=== PATIENT | male | born 1955 | race Caucasian/White ===

== ENCOUNTER 2018-04-22 17:50 | Inpatient (IN) | payer BC, OTHER ==
[2018-04-22 18:23] LABS: #Eosinphils 0.1 thou/uL (0.0-0.7); #Lymphocytes 1.4 thou/uL (1.20-3.40); #Monocytes 0.4 thou/uL (0.11-0.59); #Neutrophils 4.5 thou/uL (1.40-6.50); %Basophils 0.7 % (0.0-1.0); %Eosinophils 2.1 % (0.0-10.0); %Lymphocytes 21.3 % (21.0-51.0); %Monocytes 6.2 % (0.0-10.0); %Neutrophils 69.8 % (42.0-75.0); Hemoglobin 15.9 g/dL (14.0-18.0); Mean Corpuscular HGB CONC 32.9 g/dL (32.0-36.0); Mean Corpuscular Hemoglobin 31.4 pg (27.0-31.0); Mean Corpuscular Volume 95.5 fL (78.0-98.0); Mean Platelet Volume 8.4 fL (7.4-10.4); Platelet Count 165 thou/uL (130-400); RBC Distribution Width 11.4 % (11.5-14.5); Red Blood Cell (RBC) Count 5.08 mill/uL (4.70-6.10); White Blood Cell (WBC) Count 6.5 thou/uL (4.8-10.8)
[2018-04-22] MEDS ORDERED: Morphine 4 MG/ML VIAL ONE (18:30)
[2018-04-22] MEDS ORDERED: Ondansetron PF 4 MG/2 ML Vial ONE (18:30)
[2018-04-22 18:38] LABS: ALT (SGPT) 18 U/L (8-55); AST (SGOT) 27 U/L (5-34); Albumin 4.1 g/dL (3.4-4.8); Alkaline Phosphatase 65 U/L (40-150); Anion Gap 15 mmol/L (10-20); BUN (Urea Nitrogen) 21 mg/dL (8.4-25.7); Bilirubin, Total 0.9 mg/dL (0.2-1.2); Calc. Creatinine Clearance 0 mL/min (70-130); Calcium 9.7 mg/dL (7.8-10.44); Carbon Dioxide 25 mmol/L (23-31); Chloride 102 mmol/L (98-107); Estimated GFR-MDRD 63; Globulin 2.9 g/dL (2.4-3.5); Glucose 102 mg/dL (80-115); Potassium 3.9 mmol/L (3.5-5.1); Sodium 138 mmol/L (136-145)
--- NOTE | 2018-04-22 19:17 | RAD ---
TWO VIEWS HIP: Indication: History of fall with right hip pain. Comparison: None. FINDINGS: There is a mid-cervical right femoral neck fracture. The distal fracture fragment (femoral shaft comp onent) is externally rotated and displaced anteriorly 1.3 cm. There is moderate degenerative arthrosi s involving the right hip. No additional fractures identified. IMPRESSION: 1. Mid-cervical right femoral neck fracture with mild angulation and displacement. 2. Moderate right hip osteoarthrosis. POS: [facility]
--- NOTE | 2018-04-22 19:21 | RAD ---
CHEST ONE VIEW: Indication: Pre-op. Comparison: None. FINDINGS: The lungs are clear. There is mild hyperinflation that accentuates the size of the heart and pulmonar y vasculature. These are felt to be within normal limits. No pleural effusion or pneumothorax is evid ent. No definite acute osseous abnormality is noted. IMPRESSION: No acute cardiopulmonary abnormality is demonstrated. POS: [facility]
[2018-04-22 19:37] LABS: Bilirubin Negative (Negative); Blood, Urine Negative (Negative); Clarity CLEAR (Clear); Glucose, Urine (Dipstick) Negative (Negative); Leukocyte Negative (Negative); Nitrite Negative (Negative); Protein, Urine (Dipstick) Negative (Neg-Trace); Specific Gravity, Urine 1.012 (1.002-1.036); Urobilinogen 0.2 mg/dL (0.2-1.0)
[2018-04-22] MEDS ORDERED: Ondansetron PF 4 MG/2 ML Vial IVP PRN (19:38)
[2018-04-22] MEDS ORDERED: Ondansetron ODT 4 MG TAB PO PRN (19:38)
[2018-04-22] MEDS ORDERED: Morphine 4 MG/ML VIAL SLOW IVP PRN ×2 (19:38)
[2018-04-22] MEDS ORDERED: Dextrose 50% Abboject 50 ML SYRINGE SLOW IVP PRN (19:38)
[2018-04-22] MEDS ORDERED: Dextrose 5% in Water 1,000 ML IV PRN (19:38)
[2018-04-22] MEDS ORDERED: traMADol HCl 50 MG TAB PO PRN (19:43)
--- NOTE | 2018-04-22 20:04 | RAD ---
RIGHT WRIST THREE VIEWS: Indication: Fall with right wrist pain. Comparison: None. FINDINGS: There is a comminuted, dorsally impacted intraarticular distal radius fracture. The distal fracture f ragment is displaced dorsally 5 mm. There is intraarticular comminution that extends into the lunate fossa and DRUJ. Additionally there is a ulnar styloid base fracture that is mildly displaced. There i s a subchondral cyst like abnormality within the lunate. The wrist carpus appears within normal limit s otherwise. IMPRESSION: 1. Comminuted dorsally angulated, dorsally impacted intraarticular distal radius fracture of the righ t wrist. 2. Mildly displaced comminuted right ulnar styloid based fracture. POS: [facility]
--- NOTE | 2018-04-22 21:08 | HP ---
ATTENDING TRAUMA SURGEON: Dr. Morales. HISTORY OF PRESENT ILLNESS: This is a 62-year-old gentleman, who was cleaning his gutters up on a ladder, when the ladder tilted away from him casing him to fall to a hard surface from approximately 10 to 15 feet. The patient reports landing on his right side injuring his right wrist and right hip. The patient denies any loss of consciousness. Denies any nausea, vomiting, or dizziness. The patient denies any other pain. Denies any neck pain or head pain. No other obvious injuries. The patient was evaluated in the emergency room and was found to have a right wrist fracture and a right mid cervical femoral neck fracture with mild angulation and displacement. The patient does report history of neuropathy to both feet, unknown calls for the last 8 years. The patient does see a neurologist for this condition, states that he has very minimal sensation to his feet and lower extremities. The patient also reports a right foot drag whenever he walks, which has been happening over the last year. Only other history is the patient had gastric bypass in May 2017 with no difficulties. The patient had a 130 pounds weight loss. The patient reports that he was on medications for hypertension and diabetes at that time, but now is no longer needing medication. 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 The patient had 2 rounds of chemo 2 years ago for a blood cancer. PAST SURGICAL HISTORY: Bariatric surgery in 2018 and back surgery. SOCIAL HISTORY: The patient lives at home with his . The patient drinks socially approximately 3 drinks a week. The patient denies any drug use. The patient reports smokes a cigar approximately once a week. ALLERGIES: NO KNOWN DRUG ALLERGIES. MEDICATIONS: 1. Aspirin 81 mg daily. 2. Bariatric vitamin daily. 3. Citalopram 20 mg daily. REVIEW OF SYSTEMS: A 10-point review of systems is negative unless otherwise indicated in the above HPI. PHYSICAL EXAMINATION: VITAL SIGNS: Blood pressure 148/92, pulse 72, respirations 16, temperature 97.7 , and 98% on room air. GENERAL: The patient is awake, alert, in no distress. The patient is alert and oriented to place, time, and event. HEENT: Head is atraumatic and normocephalic. Pupils are equal, round, and reactive at 4 mm bilateral. NECK: With normal findings. Normal range of motion. Trachea is midline. There is no cervical tenderness. RESPIRATORY: Bilateral breath sounds clear, chest movement is symmetrical, small abrasion to the left anterior chest wall. No chest tenderness. No deformity. CARDIOVASCULAR: Regular rate and rhythm. Heart sounds are normal. No murmur noted. ABDOMEN: Soft, nontender, and nondistended. Active bowel sounds. BACK: Normal inspection. No pain. EXTREMITIES: Right wrist with obvious deformity. Positive distal pulse and sensation intact. Right lower extremity externally rotated. 2+ pedal pulse and 2+ dorsalis pedal pulses. The patient with minimal sensation due to neuropathy. The patient with good movement of all extremities distally. Right wrist in a sugar- tong splint placed by ER physician. NEUROLOGIC: The patient is awake, alert, and oriented x4. GCS 15. Moves all extremities. The patient does have decreased sensation to lower extremities, especially bilateral feet. Again, this is normal for the patient. LABORATORY DATA: WBC 6.5, RBC 5.08, hemoglobin 15.9, hematocrit 48.5, platelets 165. APTT 27.2. Sodium 138, potassium 3.9, chloride 102, carbon dioxide 25, anion gap 15, BUN 21, creatinine 1.18, estimated GFR 63, glucose 102, calcium 9.7. AST 27, ALT 18, alkaline phos 65, serum total protein 7.0, albumin 4.1, and globulin 2.9. Urinalysis clear yellow urine, negative protein, negative glucose, trace of ketones, negative for blood, negative for nitrites, negative for leukocyte esterase. DIAGNOSTICS: 1. Right hip x-ray; impression, mid cervical right femoral neck fracture with mild angulation and displacement. Moderate right hip osteoarthritis. 2. Chest x-ray, no acute cardiopulmonary abnormality as demonstrated. 3. Right wrist x-ray, comminuted dorsally angulated, dorsally impacted intra-articular distal radius fracture. Mildly displaced comminuted ulnar styloid base fracture. IMPRESSION: 1. Fall from 10 to 15 feet off a ladder. 2. Right mid cervical femoral neck fracture with mild angulation and displacement. 3. Right comminuted, angulated, impacted distal radial ulnar fracture. 4. History of neuropathy. 5. Acute traumatic pain. PLAN: We will admit the patient to the surgical ortho floor. Dr. Álvarez plans to take the patient to the OR tomorrow. We will place the patient n.p.o. after midnight for OR. We will start the patient on IV maintenance fluids. We will place the patient on a pain regimen. Physical therapy and occupational therapy will be ordered and to treat and evaluate after OR tomorrow. We will also place a rehab screen for the patient. The plan will be discussed with Dr. Morales after this dictation. Job ID: [id number] MTDD
[2018-04-22 21:13] LABS: Magnesium 2.4 mg/dL (1.6-2.6); Phosphorus 2.6 mg/dL (2.3-4.7)
[2018-04-22] MEDS ORDERED: diphenhydrAMINE 50 MG/ML VIAL IVP PRN (21:40)
[2018-04-22] MEDS ORDERED: diphenhydrAMINE 50 MG/ML VIAL IM PRN (21:40)
[2018-04-22] MEDS ORDERED: Naloxone HCl 0.4 mg/ml Vial IV PRN (21:40)
[2018-04-22] MEDS ORDERED: Zolpidem Tartrate 5 MG TAB PO PRN (21:40)
[2018-04-22] MEDS ORDERED: Promethazine HCl 25 MG/ML VIAL IM PRN (21:40)
[2018-04-22] MEDS ORDERED: diphenhydrAMINE 25 MG CAP PO PRN (21:40)
[2018-04-22] MEDS ORDERED: Communication Order-Pharmacy FS SCH (21:45)
[2018-04-22] MEDS ORDERED: Ibuprofen 800 MG TAB PO SCH (22:00)
[2018-04-22] MEDS: Famotidine 20 MG TAB PO SCH (22:29)
[2018-04-22] MEDS: Sodium Chloride 0.9% 1,000 ML IV SCH (22:30)
[2018-04-22] MEDS: HYDROmorphone 10 mg/100 ml CADD IVPB PRN (22:36)
--- NOTE | 2018-04-22 23:01 | PRG ---
DATE OF SERVICE: 04/22/2018 Mr. Goodson is a 62-year-old man, who fell off a ladder sustaining multiple traumatic injuries of the upper and lower extremities. He is awake and alert with a [place] Coma Scale of 15. He is complaining of severe right hip pain which he rates now at 9/10. He has recently been given intravenous morphine with minimum relief. He has remained hemodynamically stable otherwise since his admission. I reviewed the history and physical as documented by Marah Buchanan, trauma nurse practitioner and I agree with her impressions and plan. Mr. Goodson will be evaluated by Dr. Guido Álvarez from operative surgical standpoint and hopefully undergo surgical repair tomorrow. Meanwhile, we will change his pain management to PRACTICE COORDINATOR Dilaudid. Citalopram at 20 mg p.o. daily and I will resume that. The above findings and plan discussed with the patient and his at bedside. They both agreed with the plan. Job ID: [id number]
[2018-04-22 23:24] VITALS: BMI 26.9
[2018-04-22] MEDS: Ketorolac Tromethamine 30 MG/ML VIAL IVP SCH (23:44)
[2018-04-22] MEDS: Acetaminophen 500 MG TAB PO SCH (23:44)
[2018-04-22] MEDS ORDERED: traMADol HCl 50 MG TAB PO SCH (23:59)
[2018-04-23] MEDS: Sodium Chloride 0.9% 1,000 ML IV SCH ×3 (05:09→21:34)
[2018-04-23 05:34] LABS: #Basophils 0.1 thou/uL (0.0-0.2); #Eosinphils 0.1 thou/uL (0.0-0.7); #Lymphocytes 1.1 thou/uL (1.20-3.40); #Monocytes 0.5 thou/uL (0.11-0.59); #Neutrophils 4.4 thou/uL (1.40-6.50); %Basophils 0.9 % (0.0-1.0); %Lymphocytes 18.4 % (21.0-51.0); %Monocytes 7.9 % (0.0-10.0); %Neutrophils 71.8 % (42.0-75.0); Hemoglobin 14.1 g/dL (14.0-18.0); Mean Corpuscular HGB CONC 32.1 g/dL (32.0-36.0); Mean Corpuscular Hemoglobin 30.9 pg (27.0-31.0); Mean Platelet Volume 8.4 fL (7.4-10.4); Platelet Count 121 thou/uL (130-400); RBC Distribution Width 11.3 % (11.5-14.5); Red Blood Cell (RBC) Count 4.57 mill/uL (4.70-6.10); White Blood Cell (WBC) Count 6.1 thou/uL (4.8-10.8)
[2018-04-23 05:57] LABS: Phosphorus 4.8 mg/dL (2.3-4.7)
[2018-04-23 06:01] LABS: ALT (SGPT) 15 U/L (8-55); AST (SGOT) 20 U/L (5-34); Albumin 3.5 g/dL (3.4-4.8); Alkaline Phosphatase 51 U/L (40-150); Anion Gap 10 mmol/L (10-20); BUN (Urea Nitrogen) 22 mg/dL (8.4-25.7); Calc. Creatinine Clearance 108 mL/min (70-130); Calcium 8.9 mg/dL (7.8-10.44); Carbon Dioxide 28 mmol/L (23-31); Chloride 104 mmol/L (98-107); Estimated GFR-MDRD 72; Globulin 2.3 g/dL (2.4-3.5); Glucose 103 mg/dL (80-115); Magnesium 2.1 mg/dL (1.6-2.6); Potassium 4.4 mmol/L (3.5-5.1); Protein, Total 5.8 g/dL (5.8-8.1); Sodium 138 mmol/L (136-145)
[2018-04-23] MEDS: Acetaminophen 500 MG TAB PO SCH ×4 (06:06→23:23)
[2018-04-23] MEDS: Ketorolac Tromethamine 30 MG/ML VIAL IVP SCH (06:06)
[2018-04-23] MEDS ORDERED: CEFAZOLIN 2 GM in Premix Bag 1 BAG IVPB SCH (07:45)
--- NOTE | 2018-04-23 07:51 | CON ---
DATE OF CONSULTATION: 04/23/2018 REASON FOR CONSULTATION: 1. Right hip mid cervical femoral neck fracture. 2. Right distal radius metaphyseal fracture. BRIEF CLINICAL HISTORY: Keven is a 62-year-old white male, who was working on a ladder yesterday evening, when apparently tilted away from his house, falling approximately 10 to 15 feet, landing on his right side. He had immediate onset of pain in his right hip and forearm and EMS was summoned. The patient was taken to [facility], where plain radiographs demonstrated a right distal radius metaphyseal fracture, displaced, shortened with an accompanying right hip mid cervical femoral neck fracture. He had been admitted by the Trauma Team and our service was consulted for definitive management of these problems. 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 The patient received chemotherapy. He also developed resultant neuropathy in both lower extremity secondary to this. PAST SURGICAL HISTORY: Bariatric gastric bypass, I believe versus band. SOCIAL HISTORY: He lives here in [place]. He and his live together. He is . He smokes a cigar once a week and drinks socially. MEDICATIONS: 1. Aspirin. 2. Citalopram. REVIEW OF SYSTEMS: He denies any fever, chills, nausea, vomiting, chest pain, dyspnea on exertion, or swelling of extremities prior to his fall. No history of heart problems. PHYSICAL EXAMINATION: GENERAL: This is a well-nourished, well-developed white male, appearing stated age, in no apparent distress, discomfort. He is alert and oriented to person, place, time, and situation. EXTREMITIES: Visual inspection of the right wrist demonstrates to be in a volar splint. He has good digital excursion and good sensation in all digits. Right lower extremity is not examined, but it is shortened and externally rotated relative to the left. He has good distal pulses at the dorsalis pedis, posterior tibialis. Good and warm toes. Range of motion, not assessed due to an underlying fracture. IMAGING STUDIES: Plain radiographs of the right hip demonstrates a mid cervical shortened right femoral neck fracture and plain radiographs of the right forearm demonstrate a right distal radius metaphyseal fracture with question of intra-articular placement, but on the lateral view, it appears to be just a Colles fracture. IMPRESSION: 1. Right hip mid cervical femoral neck fracture secondary to fall. 2. Right distal radius metaphyseal displaced fracture secondary to fall. PLAN: 1. The risks, benefits, options, alternatives, and rationale for proceeding with total hip arthroplasty has been explained in great detail with the patient. He is ready to proceed. All questions were answered. No guarantee of outcome stated or implied. 2. The risks, benefits, options, alternatives, and rationale for proceeding with right distal radius open reduction and internal fixation has been explained in great detail with the patient. He is ready to proceed. All questions were answered. No guarantee of outcome stated or implied. 3. Please see orders. Job ID: [id number]
[2018-04-23] MEDS ORDERED: Vancomycin HCl 1.5 GM in Sodium Chloride 0.9% 250 ML 300 ML IVPB SCH (08:30)
[2018-04-23] MEDS: Polyethylene Glycol 3350 17 GM Packet PO SCH (08:37)
[2018-04-23] MEDS: Citalopram 20 MG TAB PO SCH (08:38)
[2018-04-23] MEDS: Famotidine 20 MG TAB PO SCH ×2 (08:38→21:30)
[2018-04-23] MEDS ORDERED: Tranexamic Acid 1,000 MG/10 ML VIAL ONE ×2 (10:35→12:27)
[2018-04-23] MEDS ORDERED: Sodium Chloride 0.9% 100 ML ONE (10:35)
[2018-04-23] MEDS ORDERED: Fentanyl 100 MCG/2 ML VIAL ONE ×2 (10:40→11:42)
[2018-04-23] MEDS ORDERED: Midazolam HCl 2 mg/2 ml Vial ONE (10:40)
[2018-04-23] MEDS ORDERED: Ketorolac Tromethamine 30 MG/ML VIAL IVP PRN (11:15)
[2018-04-23] MEDS ORDERED: HYDROcodone/Acetaminophen 5/325 mg Tablet PO PRN ×2 (11:15)
[2018-04-23] MEDS ORDERED: Naloxone HCl 0.4 mg/ml Vial IV PRN (11:15)
[2018-04-23] MEDS ORDERED: diphenhydrAMINE 50 MG/ML VIAL IM PRN (11:15)
[2018-04-23] MEDS ORDERED: Zolpidem Tartrate 5 MG TAB PO PRN ×2 (11:15→11:48)
[2018-04-23] MEDS ORDERED: Naloxone HCl 0.4 mg/ml Vial IVP PRN (11:15)
[2018-04-23] MEDS ORDERED: diphenhydrAMINE 25 MG CAP PO PRN ×2 (11:15→11:48)
[2018-04-23] MEDS ORDERED: Ondansetron PF 4 MG/2 ML Vial IVP PRN ×2 (11:15→11:48)
[2018-04-23] MEDS ORDERED: Promethazine HCl 25 MG SUPP PR PRN (11:15)
[2018-04-23] MEDS ORDERED: Promethazine HCl 25 MG/ML VIAL IM PRN ×3 (11:15→13:51)
[2018-04-23] MEDS ORDERED: traMADol HCl 50 MG TAB PO PRN ×2 (11:15)
[2018-04-23] MEDS ORDERED: Bupivacaine 0.25% 10 ML VIAL EPIDURAL PRN (11:15)
[2018-04-23] MEDS ORDERED: Hydrocerin (Eucerin) Cream 120 gm Jar TOP PRN (11:15)
[2018-04-23] MEDS ORDERED: diphenhydrAMINE 50 MG/ML VIAL IVP PRN (11:15)
[2018-04-23] MEDS ORDERED: Bupivacaine 10 ML in Sodium Chloride 0.9% 90 ML EPIDURAL SCH (11:30)
[2018-04-23] MEDS ORDERED: Ropivacaine 0.2% HCl/PF 20 ML ONE (11:42)
[2018-04-23] MEDS ORDERED: Acetaminophen 325 MG TAB PO PRN (11:48)
[2018-04-23] MEDS ORDERED: HYDROcodone/Acetaminophen 10/325 mg Tablet PO PRN ×2 (11:48)
[2018-04-23] MEDS ORDERED: Fentanyl 100 MCG/2 ML VIAL SLOW IVP PRN ×2 (11:48)
[2018-04-23] MEDS ORDERED: Bupivacaine HCl 0.5%/Epinephrine 1:200,000/PF 30 ml Vial ONE (13:37)
[2018-04-23] MEDS ORDERED: Ondansetron HCl/PF 4 MG/2 ML Vial IVP PRN (13:51)
[2018-04-23] MEDS ORDERED: Promethazine HCl 25 MG/ML VIAL SLOW IVP PRN (13:51)
--- NOTE | 2018-04-23 15:27 | RAD ---
RIGHT WRIST 3 VIEWS: Date: 04/23/18 HISTORY: Intraoperative films. FINDINGS: These films show open reduction and internal fixation of the distal radial fracture with plate and sc rews. Bony alignment appears satisfactory. IMPRESSION: 1. Open reduction and internal fixation of the distal radial fracture. Incidental note is made of an ulnar styloid fracture. 2. Also incidentally noted is possible slight widening of the distance between the scaphoid and nabil te, difficulty to assess on this C-arm film, but raising the possibility of a scapholunate ligament i njury. POS: [facility]
--- NOTE | 2018-04-23 15:29 | PRG ---
DATE OF SERVICE: 04/23/2018 SUBJECTIVE: This is a 62-year-old gentleman, who fell approximately 10 to 15 feet off a ladder as he was cleaning out his gutters. The patient is awake and alert, and has been n.p.o. since midnight pending surgery on his right wrist and right hip. The patient had no overnight events. The patient reports his pain was well controlled with CAPACITY MANAGEMENT SPECIALIST pump. The patient has no complaints at this time. OBJECTIVE: VITAL SIGNS: Temperature 98.5, pulse 58, respirations 14, SpO2 of 95% on room air, blood pressure 117/77. HEENT: Normocephalic, atraumatic. RESPIRATORY: No distress. Breathing is normal and unlabored. Bilateral equal breath sounds. CARDIAC: Regular rate and rhythm. No murmur. ABDOMEN: Soft, nontender, nondistended. EXTREMITIES: The patient with splint to right wrist. Positive distal pulses to all extremities. No focal deficits. NEUROLOGIC: The patient with GCS 15. No focal deficits. LABORATORY DATA: WBC 6.1, RBC 4.57, hemoglobin 14.1, hematocrit 43.9, platelets 121. Sodium 138, potassium 4.4, chloride 104, anion gap 10, BUN 22, creatinine 1.05, estimated GFR 72, glucose 103, calcium 8.9, phosphorus 4.8, magnesium 2.1, AST 20, and ALT 15. DIAGNOSTICS: There are no diagnostics to review today. IMPRESSION: 1. Status post fall 10 to 15 feet off a ladder. 2. Right midcervical femoral neck fracture with mild angulation and displacement. 3. Right comminuted, angulated, distal radial ulnar fracture. 4. History of neuropathy. 5. Acute traumatic pain. PLAN: The patient remains n.p.o. for orthopedic surgery today by Dr. Álvarez. I will continue the patient's pain regimen and CAPACITY MANAGEMENT SPECIALIST. We will place the patient on an advance diet as tolerated after surgery. The patient most likely will be discharged home and will not need rehab. We will have Physical therapy and Occupational therapy for the patient after his surgery today. The patient was examined with Dr. Garcia today during morning rounds. Job ID: [id number]
--- NOTE | 2018-04-23 15:46 | RAD ---
RIGHT HIP 2 VIEWS: HISTORY: Postop hip replacement followup. FINDINGS: Hip prosthesis has been placed. Components appear in adequate position and alignment. POS: [facility]
[2018-04-23] MEDS ORDERED: Lidocaine 1% PF 5 ML VIAL ONE (17:01)
[2018-04-23] MEDS ORDERED: Ondansetron PF 4 MG/2 ML Vial ONE (17:01)
[2018-04-23] MEDS ORDERED: ePHEDrine 50 MG/ML VIAL ONE (17:01)
[2018-04-23] MEDS ORDERED: Glycopyrrolate 0.2 MG/ML 5 ML SYRINGE ONE (17:01)
[2018-04-23] MEDS ORDERED: Ketorolac Tromethamine 30 MG/ML VIAL ONE (17:01)
[2018-04-23] MEDS ORDERED: Rocuronium Bromide 10 MG/ML (10ML VIAL) ONE (17:01)
[2018-04-23] MEDS ORDERED: PROPOFOL 200 MG/20 ML VIAL ONE (17:01)
--- NOTE | 2018-04-23 17:46 | RAD ---
RIGHT HIP TWO VIEWS: History: Post op evaluation FINDINGS/IMPRESSION: Hip prosthesis in place. Component appear in adequate position and alignment. Post op changes are not ed. POS: [facility]
[2018-04-23] MEDS: CEFAZOLIN 2 GM in Sodium Chloride 0.9% 100 ML IVPB SCH (19:22)
[2018-04-23] MEDS: Aspirin 81 mg Enteric Coated Tablet PO SCH (21:30)
[2018-04-23] MEDS: Senokot S 8.6-50 MG TAB PO SCH (21:30)
[2018-04-23] MEDS: Ferrous Gluconate 324 MG TAB PO SCH (21:30)
[2018-04-24] MEDS: CEFAZOLIN 2 GM in Sodium Chloride 0.9% 100 ML IVPB SCH (03:06)
[2018-04-24] MEDS: Sodium Chloride 0.9% 1,000 ML IV SCH (03:07)
[2018-04-24 05:29] LABS: Hemoglobin 11.7 g/dL (14.0-18.0); Mean Corpuscular HGB CONC 33.4 g/dL (32.0-36.0); Mean Corpuscular Hemoglobin 31.7 pg (27.0-31.0); Mean Corpuscular Volume 94.8 fL (78.0-98.0); Mean Platelet Volume 8.4 fL (7.4-10.4); Platelet Count 102 thou/uL (130-400); RBC Distribution Width 11.3 % (11.5-14.5); Red Blood Cell (RBC) Count 3.69 mill/uL (4.70-6.10); White Blood Cell (WBC) Count 4.3 thou/uL (4.8-10.8)
[2018-04-24] MEDS: Acetaminophen 500 MG TAB PO SCH ×4 (05:41→23:37)
[2018-04-24 05:44] LABS: Anion Gap 7 mmol/L (10-20); BUN (Urea Nitrogen) 16 mg/dL (8.4-25.7); Calc. Creatinine Clearance 110 mL/min (70-130); Calcium 7.8 mg/dL (7.8-10.44); Carbon Dioxide 29 mmol/L (23-31); Chloride 103 mmol/L (98-107); Estimated GFR-MDRD 73; Glucose 110 mg/dL (80-115); Sodium 135 mmol/L (136-145)
[2018-04-24 08:22] LABS: Magnesium 1.6 mg/dL (1.6-2.6); Phosphorus 2.9 mg/dL (2.3-4.7)
[2018-04-24] MEDS ORDERED: Potassium Phosphate 15 MMOL, Magnesium Sulfate 2 GM in Sodium Chloride 0.9% 250 ML 250 ML IVPB SCH (08:30)
[2018-04-24] MEDS ORDERED: Magnesium 2 GM/50 ML 2 GM in Premix Bag 1 BAG IVPB SCH (08:30)
[2018-04-24] MEDS: Polyethylene Glycol 3350 17 GM Packet PO SCH (08:35)
[2018-04-24] MEDS: Senokot S 8.6-50 MG TAB PO SCH ×2 (08:35→20:50)
[2018-04-24] MEDS: Ferrous Gluconate 324 MG TAB PO SCH ×2 (08:36→20:50)
[2018-04-24] MEDS: Citalopram 20 MG TAB PO SCH (08:36)
[2018-04-24] MEDS: Famotidine 20 MG TAB PO SCH ×2 (08:37→20:51)
[2018-04-24] MEDS: Aspirin 81 mg Enteric Coated Tablet PO SCH ×2 (08:37→20:50)
[2018-04-24] MEDS: Multivitamin W/ Minerals 1 TAB PO SCH (08:37)
--- NOTE | 2018-04-24 09:14 | OP ---
DATE OF PROCEDURE: 04/23/2018 PREOPERATIVE DIAGNOSES: 1. Displaced femoral neck fracture, right. 2. Displaced intra-articular distal radius fracture, right. INSPECTOR RECEIVING: Rodriguez. BLOOD LOSS: 300 for the hip and less than 50 for the wrist. IMPLANTS: Implants used for the hip was [place] Accolate #5 stem, 36 mm head ceramic standard, a 56 mm cup with a 36 mm liner. PROCEDURE IN DETAIL: After informed consent was obtained in the preoperative holding area, the patient was taken to the operative suite where general anesthesia was induced. The patient was then positioned in the lateral decubitus position. The hip was then prepped and draped in usual sterile fashion. The patient received preoperative antibiotics. Prior to incision, time-out was called and all members of the surgical team agreed upon site, surgeon, and patient. After this, a longitudinal incision was made directly over the trochanter, noted by palpation extending 2 fingerbreadths above and below the trochanter. The deeper subcutaneous layer was undermined with Bovie electrocautery. The iliotibial band was encountered and incised sharply and the plane below this was developed bluntly. A Charnley retractor was placed to hold this opened. The lateral aspect of the trochanter and the abductor muscles were encountered and then reflected anteriorly off the trochanter using Bovie electrocautery. Once this was completed, the anterior capsule was then encountered and identified and copious capsulotomy was carried out, exposing the femoral neck and head. Dislocation maneuver was then performed and an in situ provisional neck cut was then made using the oscillating saw. Attention was then turned to acetabular preparation and sequential reaming was carried out up to the appropriate diameter. A trial was then malleted into place with good firm resistance and no pullout. The permanent acetabular shell was then malleted squarely into place, as was the appropriate liner. Once completed, the wound was copiously irrigated and attention was then turned to femoral preparation. Flexion and external rotation were performed of the exposed thigh and femoral elevators were then placed at the proximal aspect of the wound. Canal finder was used to establish the length of the canal and sequential reaming was carried out, followed by broaching. Once the appropriate stability was established with the trial broaches with flexion, extension and rotational stability, we did trial with neutral and 2 mm offset incremental necks. Once the appropriate size was decided upon, with good stability noted with flexion, extension, internal and external rotation and shuck being negative, we removed the femoral trial broach and malletted into place the permanent prosthesis with good firm fit, which was also stable to rotation. Again, the hip felt very stable to flexion, extension, internal and external rotation. Leg lengths appeared near anatomic clinically and we were quite happy with prosthesis placement. Copious irrigation was then carried out through the entirety of the wound. Primary closure of the abductors was accomplished with interrupted #2 Vicryl [id number] stitches and the IT band was then closed with interrupted #2 Vicryl, oversewn with a #2 running barbed Quill stitch. Subcutaneous fascia was closed with running barbed Quill stitch and a subcuticular Monocryl barbed Quill stitch was used for skin closure and augmented with skin cement. A sterile dressing was applied. The procedure was terminated without any complication. All counts were correct. The patient was awakened in the operative suite and taken to the recovery room in stable condition. After the hip replacement, the patient was placed in supine position with arm on armboard. The right arm was prepped and draped in usual sterile fashion. After exsanguination, tourniquet was inflated to 250 mmHg. Made a standard FCR approach. Dissection was carried down to the fracture. The fracture was exposed, irrigated, reduced anatomically and 4-hole Synthes distal radius variable angle plate was applied. Screws were inserted in usual technique with excellent rigid fixation. X-rays obtained, which showed appropriate screw placement and excellent reduction of fracture. Tourniquet was released. Irrigation was performed. Hemostasis obtained. Subcu tissue was closed 2-0 Vicryl. The skin was closed with rivera. Sterile dressing was applied. The patient was placed in a splint. No complications. Job ID: [id number]
--- NOTE | 2018-04-24 10:21 | HP ---
CHIEF COMPLAINT: Fall from ladder. CONSULTING PHYSICIAN: Guido Álvarez MD HISTORY OF PRESENT ILLNESS: This patient is a 62-year-old male, who had a fall from a ladder onto a flat surface causing fracture of his right hip and right wrist. The patient was initially admitted by the Trauma team. Orthopedics was consulted and the patient had surgery yesterday. He is postop day 1, doing well today. Reports he is not having significant pain in his wrist, but he is having some pain in his right hip. Reports overall, he is feeling quite well. He is eating. Bowels are working and generally without complaints other than some pain. REVIEW OF SYSTEMS: All systems reviewed and all pertinent positives and negatives noted in history of present illness. PAST MEDICAL HISTORY: Notable for morbid obesity and peripheral neuropathy. PAST SURGICAL HISTORY: L4-L5 surgery in the mid 1980s and bariatric surgery last year. FAMILY HISTORY: Father of lung cancer. His mother is 88 and prediabetic, but otherwise healthy. SOCIAL HISTORY: The patient is . He smokes 1 cigar every 1 to 2 weeks. He has an occasional scotch. He is full code and his would be his surrogate decision maker. ALLERGIES: NONE. HOME MEDICATIONS: Aspirin 81 mg daily, which he has no specific reason to take other than it was the recommendation from his primary care provider over 15 years ago. He takes; 1. Two bariatric vitamins. 2. Chewable calcium. 3. Citalopram. PHYSICAL EXAMINATION: VITAL SIGNS: Temperature is 99.1, pulse 82, respirations 16, O2 saturation 95% on room air, and BP is 100/62. GENERAL APPEARANCE: Age-appropriate male. He is fully awake and alert, very pleasant and cooperative. HEENT: PERRL. No OP lesions. NECK: Supple and symmetric. No lymphadenopathy, JVD, or bruits. HEART: Regular rate and rhythm without murmurs, gallops, or rubs. LUNGS: Clear to auscultation bilaterally with good chest wall expansion and air exchange. ABDOMEN: Soft, nontender, and nondistended. Positive bowel sounds. No masses. No organomegaly. EXTREMITIES: No cyanosis, clubbing, or edema. Right wrist has appropriate postoperative dressing as does the right hip. He has no peripheral edema. Good peripheral pulses. LABORATORY DATA: White count 4.3, hemoglobin 11.7, and platelets 102. Sodium 135, potassium 4.0, chloride 103, CO2 is 29, anion gap is 7, BUN 16, creatinine is 1.03, glucose 110, and magnesium 1.6. IMPRESSION AND PLAN: 1. Postop repair of right wrist and right hip fracture. The patient has also a King catheter and has not been up and moving. He is on a TRAINING AND DEVELOPMENT COORDINATOR pump. We will defer management to the Orthopedic and Trauma teams. 2. History of bariatric surgery. The patient is going to have his bring his bariatric vitamins today, so we can try to assess those better and get him back on his usual regimen. 3. History of depression. The patient is quite stable on citalopram. He is back on his usual dose. No change indicated there. 4. Pancytopenia, likely secondary to the fall with trauma and some bleeding. No intervention indicated as of yet. Continue to monitor. Job ID: [id number]
--- NOTE | 2018-04-24 13:37 | PRG ---
DATE OF SERVICE: 04/24/2018 SUBJECTIVE: The patient was seen this morning, sitting up in bed and well-appearing. No signs of acute distress. He was having breakfast. Reported pain was better controlled after it was described to him the appropriate use of the EXTRACT PULLER. He states now that he is able to rest and work with Physical therapy, but previously he was not pushing the button often enough. He does have a King in place and has not had a bowel movement yet. He is pending rehab screen and PT and OT at this time. He is only postop day 1 at this time. He is tolerating his regular diet. He is on IV fluids. He denies nausea, vomiting, or diarrhea. OBJECTIVE: VITAL SIGNS: Temperature 99.3, pulse 76, respirations 16, oxygen saturation 98% on room air, and blood pressure 97/56. GENERAL: Well-appearing middle-aged male, sitting up in bed with no signs of acute distress. Eating breakfast. PULMONARY: Equal chest rise and fall. Clear breath sounds bilaterally. No signs of significant pulmonary distress. CARDIAC: Regular rate and rhythm. No murmurs, gallops, or rubs. GASTROINTESTINAL: Abdomen is soft, nontender, and nondistended. EXTREMITIES: Right lower extremity footdrop, not new and stable. Numbness and tingling in bilateral lower extremities, which is stable. Does report right-sided tingling, which is new after his injury. Gross motor and sensation intact in all 4 extremities. 2+ pulses in all extremities. No significant swelling noted. LABORATORY FINDINGS: White count 4.3, hemoglobin 11.7, hematocrit 35.0, and platelets 102. Sodium 135, potassium 4.0, chloride 103, carbon dioxide 29, BUN 16, creatinine 1.03, phosphorus 2.9, and magnesium 1.6. DIAGNOSTIC FINDINGS: There are no diagnostic findings to report. ASSESSMENT: 1. Status post mechanical fall from ladder, 10 to 15 feet. 2. Right femoral fracture. 3. Right radius fracture. 4. Acute traumatic pain. 5. 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 6. Acute on chronic renal insufficiency. 7. Stable acute blood loss anemia. PLAN: We will discontinue the normal saline and King today. We will replace phosphorus and magnesium at this time. The patient to work with Physical Therapy as well as have a rehab screen. This is likely he will go to rehab. Continue regular diet and pain regimen with EXTRACT PULLER, Tylenol and Toradol. It appears that this morning we have been able to achieve pain control. We will deescalate pain management tomorrow and transition to p.o.'s at that time. The patient is only taking aspirin at home. We will continue to hold that as he is on aspirin 81 mg b.i.d. here. The patient will likely soon be ready for discharge. Pending adequate p.o. pain regimen. The patient was discussed with Dr. Morales. Job ID: [id number]
[2018-04-24] MEDS: Gabapentin 300 MG CAP PO SCH ×2 (14:19→20:51)
[2018-04-24] MEDS: HYDROmorphone 10 mg/100 ml CADD IVPB PRN (14:24)
[2018-04-24] MEDS ORDERED: traMADol HCl 50 MG TAB PO PRN ×2 (14:42)
[2018-04-24] MEDS ORDERED: Ibuprofen 800 MG TAB PO SCH (14:45)
[2018-04-24] MEDS: Ibuprofen 800 MG TAB PO SCH (21:28)
[2018-04-25] MEDS: Acetaminophen 500 MG TAB PO SCH ×2 (06:07→11:54)
[2018-04-25] MEDS: Ibuprofen 800 MG TAB PO SCH ×2 (06:07→13:28)
[2018-04-25 06:36] LABS: #Basophils 0.1 thou/uL (0.0-0.2); #Eosinphils 0.2 thou/uL (0.0-0.7); #Lymphocytes 1.1 thou/uL (1.20-3.40); #Monocytes 0.4 thou/uL (0.11-0.59); #Neutrophils 2.9 thou/uL (1.40-6.50); %Basophils 1.1 % (0.0-1.0); %Eosinophils 3.9 % (0.0-10.0); %Lymphocytes 23.7 % (21.0-51.0); %Monocytes 8.2 % (0.0-10.0); %Neutrophils 63.1 % (42.0-75.0); Hemoglobin 12.2 g/dL (14.0-18.0); Mean Corpuscular HGB CONC 32.6 g/dL (32.0-36.0); Mean Corpuscular Volume 95.2 fL (78.0-98.0); Mean Platelet Volume 8.5 fL (7.4-10.4); Platelet Count 112 thou/uL (130-400); RBC Distribution Width 11.5 % (11.5-14.5); Red Blood Cell (RBC) Count 3.93 mill/uL (4.70-6.10); White Blood Cell (WBC) Count 4.6 thou/uL (4.8-10.8)
[2018-04-25 06:46] LABS: Anion Gap 9 mmol/L (10-20); BUN (Urea Nitrogen) 15 mg/dL (8.4-25.7); Calc. Creatinine Clearance 109 mL/min (70-130); Calcium 8.6 mg/dL (7.8-10.44); Carbon Dioxide 29 mmol/L (23-31); Chloride 102 mmol/L (98-107); Estimated GFR-MDRD 73; Glucose 92 mg/dL (80-115); Magnesium 2.2 mg/dL (1.6-2.6); Phosphorus 3.6 mg/dL (2.3-4.7); Potassium 4.2 mmol/L (3.5-5.1); Sodium 136 mmol/L (136-145)
[2018-04-25 07:41] VITALS: TEMP 98.1
[2018-04-25] MEDS ORDERED: Potassium Phosphate 15 MMOL in Sodium Chloride 0.9% 250 ML 250 ML IVPB SCH (08:00)
[2018-04-25] MEDS: Multivitamin W/ Minerals 1 TAB PO SCH (08:59)
[2018-04-25] MEDS: Famotidine 20 MG TAB PO SCH (08:59)
[2018-04-25] MEDS: Aspirin 81 mg Enteric Coated Tablet PO SCH (08:59)
[2018-04-25] MEDS: Citalopram 20 MG TAB PO SCH (08:59)
[2018-04-25] MEDS: Ferrous Gluconate 324 MG TAB PO SCH (08:59)
[2018-04-25] MEDS: Polyethylene Glycol 3350 17 GM Packet PO SCH (08:59)
[2018-04-25] MEDS: Gabapentin 300 MG CAP PO SCH (08:59)
[2018-04-25] MEDS: Senokot S 8.6-50 MG TAB PO SCH (08:59)
[2018-04-25 11:22] VITALS: BP 112/75
--- NOTE | 2018-04-25 12:56 | PQF ---
DATE: 04-25-18 ATTN: DANICA FLEMING Please exercise your independent, professional judgment in responding to the clarification form. Clinical indicators are provided on the bottom of this form for your review Please check appropriate box(s): [ X ] Acute Renal Failure (ARF) / Acute Kidney Injury (CHUN) [ ] Acute on Chronic Renal Failure please specify Stage of CKD (see below) [ ] CKD without ARF/CHUN please specify Stage of CKD [ ] Other diagnosis [ ] Unable to determine In addition, please specify: Present on Admission (POA): [ X ] Yes [ ] No [ ] Unable to determine National Kidney Foundation Guidelines for CKD Staging Stage I Kidney damage with normal or increased GFR GFR > 90 Stage II Kidney damage with mildly decreased GFR GFR 60- 89 Stage III Kidney damage with moderately decreased GFR GFR 30-59 Stage IV Kidney damage with severely decreased GFR GFR 16-29 Stage V Kidney failure GFR<15 ESRD End Stage Renal Disease On dialysis Acute Renal Failure/Acute Kidney Failure defined as: Increases in SCr by (>) 0.3 mg/dl within 48 hours OR- Increases in SCr by (>) 1.5 times baseline, known or presumed to have occurred within the prior 7 days OR- Urine volume < 0.5 ml/kg/hour for 6 hours (KDIGO supplement 2012 for RIFLE/ALEJANDRA criteria) For continuity of documentation, please document condition throughout progress notes and discharge summary. Thank You. CLINICAL INDICATORS - SIGNS / SYMPTOMS / LABS PN COLLINS POLANCO PA-C 04-24-18: ASSESSMENT: ACUTE ON CHRONIC RENAL INSUFFICIENCY GFR: 04-22-18: 63 04-23-18: 72 04-24-18: 73 04-25-18: 73 CREATININE: 04-22-18: 1.18 04-23-18: 1.05 04-24-18: 1.03 04-25-18: 1.04 BUN: 04-22-18: 21 19: 22 19: 16 04-25-18: 15 RISK FACTORS: H&P: HOME MEDS: ASA TREATMENTS: MAR: NS IV (This form is maintained as a part of the permanent medical record) 2014 [employer]. All Rights Reserved COLLETTE [email or web address] Office: [phone] [facility] [place] [facility]
--- NOTE | 2018-04-25 13:46 | DIS ---
DATE OF ADMISSION: 04/22/2018 DATE OF DISCHARGE: 04/25/2018 ADMITTING DIAGNOSES: 1. Mechanical fall from ladder, 10 to 15 feet. 2. Right mid femur fracture. 3. Right radius fracture. DISCHARGE DIAGNOSES: 1. Mechanical fall from ladder, 10 to 15 feet. 2. Right mid femur fracture. 3. Right radius fracture. CONSULTING PHYSICIAN: Dr. Álvarez, orthopedic surgery. PROCEDURES: He went to the OR on April 23, 2018, and received ORIF of the right femur and right radius. HOSPITAL COURSE: Mr. Goodson is a 62-year-old male who presented to the emergency department after falling off a ladder 10 to 15 feet. The patient has a right lower extremity foot drop and neuropathy and fell off his ladder. Reports no loss of consciousness or anticoagulation use. He was admitted to the hospital and the next day went to the OR with Dr. Álvarez for fixation of his femur and radial fracture on the right side. Postoperatively, the patient was transitioned to p.o. pain medications. He worked with Physical and Occupational therapy and was able to get around well on a platform walker. At the time of discharge he was tolerating a regular diet. Pain was well controlled. He was voiding without difficulty. The patient does not have a BM regularly due to a history of gastric bypass, but reported he did not feel bloated. The patient is to be discharged home with a platform walker and outpatient physical therapy. DISCHARGE DISPOSITION: Home. DISCHARGE CONDITION: Satisfactory. PHYSICAL EXAMINATION: GENERAL: Well-appearing elderly male, sitting up in bed with no signs of acute distress. PULMONARY: Equal chest rise and fall. Clear breath sounds bilaterally. No signs of acute pulmonary distress. CARDIAC: Regular rate and rhythm. No murmurs, gallops, or rubs. GASTROINTESTINAL: Soft, nontender, nondistended. EXTREMITIES: Right upper extremity with dressing in place. It is clean, dry, and intact. Right lower extremity with dressing in place. It is clean, clean, dry, and intact. No signs of swelling or infection. 2+ pulses in all extremities. Gross motor and sensation intact in all extremities. DISCHARGE INSTRUCTIONS: The patient is weightbearing as tolerated. He is on a regular diet with no restrictions. He will get outpatient physical therapy. He is to use his right upper extremity platform walker and his incentive spirometry. DISCHARGE MEDICATIONS: Include: 1. Tylenol. 2. Aspirin. 3. Celexa. 4. Neurontin. 5. Motrin. 6. MiraLAX. 7. Tramadol. FOLLOWUP APPOINTMENTS: He will follow up with Dr. Carmen us. He will follow up with Dr. Álvarez, orthopedic surgery in 10 to 14 days. This is merely a summary of the patient's hospitalization. For full details, please see his medical record in its entirety. Job ID: [id number]
--- NOTE | 2018-04-25 14:38 | PDOC.PN ---
- Subjective Encounter Start Date: 04/25/18 Encounter Start Time: 14:37 (late entry) Subjective: feels well. going home today w OP rehab -: no pain in fractured arm or lef.able to wlak -: no new complaints and feels well - Objective MAR Reviewed: Yes Vital Signs & Weight: Vital Signs (12 hours) Temp Pulse Resp BP Pulse Ox 04/25/18 11:19 98.1 F 68 18 112/75 96 04/25/18 08:00 98 04/25/18 07:36 98.1 F 60 18 97/65 98 04/25/18 04:07 97.6 F 56 L 18 95/62 99 Weight Weight 227 lb 1.6 oz I&O: 04/24/18 04/25/18 04/26/18 06:59 06:59 06:59 Intake Total 1940 2150 Output Total 1050 1650 Balance 890 500 Result Diagrams: 04/25/18 06:10 04/25/18 06:10 Phys Exam - Physical Examination Constitutional: NAD HEENT: PERRLA, moist MMs, sclera anicteric, oral pharynx no lesions, 2+ tonsils Neck: no nodes, no JVD, supple, full ROM Respiratory: no wheezing, no rales, no rhonchi, clear to auscultation bilateral Cardiovascular: RRR, no significant murmur, no rub, gallop Gastrointestinal: soft, non-tender, no distention Musculoskeletal: no edema, pulses present cast R arm and r leg Neurological: non-focal, normal sensation, moves all 4 limbs Psychiatric: normal affect, A&O x 3 Skin: no rash Dx/Plan (1) Depression Code(s): F32.9 - MAJOR DEPRESSIVE DISORDER, SINGLE EPISODE, UNSPECIFIED Status : Chronic (2) Femur fracture, right Code(s): S72.91XA - UNSP FRACTURE OF RIGHT FEMUR, INIT FOR CLOS FX Status: Acute (3) Radial fracture Code(s): S52.90XA - UNSP FRACTURE OF UNSP FOREARM, INIT FOR CLOS FX Status: Acute - Plan PT/OT, DVT proph w/SCDs OK to DC from Im stand point.s/p surgical correction of both fractures -: HD stable * . Review of Systems - Review of Systems Constitutional: negative: fever, chills, sweats, weakness, malaise, other ENT: negative: Ear Pain, Ear Discharge, Nose Pain, Nose Discharge, Nose Congestion, Mouth Pain, Mouth Swelling, Throat Pain, Throat Swelling, Other Respiratory: negative: Cough, Dry, Shortness of Breath, Hemoptysis, SOB with Excertion, Pleuritic Pain, Sputum, Wheezing Cardiovascular: negative: chest pain, palpitations, orthopnea, paroxysmal nocturnal dyspnea, edema, light headedness, other Gastrointestinal: negative: Nausea, Vomiting, Abdominal Pain, Diarrhea, Constipation, Melena, Hematochezia, Other Genitourinary: negative: Dysuria, Frequency, Incontinence, Hematuria, Retention , Other Musculoskeletal: negative: Neck Pain, Shoulder Pain, Arm Pain, Back Pain, Hand Pain, Leg Pain, Foot Pain, Other Neurological: negative: Weakness, Numbness, Incoordination, Change in Speech, Confusion, Seizures, Other - Medications/Allergies Allergies/Adverse Reactions: Allergies Allergy/AdvReac Type Severity Reaction Status Date / Time No Known Drug Allergies Allergy Verified 04/22/18 23:38
== END 2018-04-25 13:56 | disposition home or self-care (01) | DRG 470 ==
LOC: ERS 17:50 → SURG A 20:55
PROVIDERS: ADMIT Surgery; ATTEND Surgery
PROC: 0SR9039 Replacement of Right Hip Joint with Ceramic Synthetic Substitute, Cemented, Open Approach (ICD-10-PCS; principal; 2018-04-23)
PROC: 0PSH04Z Reposition Right Radius with Internal Fixation Device, Open Approach (ICD-10-PCS; 2018-04-23)
DX: S72.031A Displaced midcervical fracture of right femur, initial encounter for closed fracture (principal); S52.571A Other intraarticular fracture of lower end of right radius, initial encounter for closed fracture; S52.611A Displaced fracture of right ulna styloid process, initial encounter for closed fracture; N17.9 Acute kidney failure, unspecified; D62 Acute posthemorrhagic anemia; D61.818 Other pancytopenia; M16.11 Unilateral primary osteoarthritis, right hip; G62.9 Polyneuropathy, unspecified; F32.9 Major depressive disorder, single episode, unspecified; Z79.82 Long term (current) use of aspirin; Z92.21 Personal history of antineoplastic chemotherapy; Z98.84 Bariatric surgery status; Z98.890 Other specified postprocedural states; W11.XXXA Fall on and from ladder, initial encounter
CPT/HCPCS: 29125; 36415; 51702; 71045; 76000; 80048; 80053; 81003; 83735; 84100; 85025; 85027; 85730; 86850; 86900; 86901; 93005; 96374; 96375; C1713; G0390; J0670; J0690; J1885; J2001; J2250; J2270; J2405; J2704; J2795; J3010; J3370; J3475; J3490; J7050; Q0163; S0020